=== PATIENT | male | born 1990 | race Hispanic/Latino ===

== ENCOUNTER 2022-10-30 11:32 | Emergency (ER) | payer SELFPAY ==
[2022-10-30 12:22] LABS: #Eosinphils 0.1 thou/uL (0.0-0.7); #Lymphocytes 3.1 thou/uL (1.20-3.40); #Monocytes 0.5 thou/uL (0.11-0.59); #Neutrophils 5.4 thou/uL (1.40-6.50); %Basophils 0.3 % (0.0-1.0); %Eosinophils 1.1 % (0.0-10.0); %Lymphocytes 34.1 % (21.0-51.0); %Monocytes 5.4 % (0.0-10.0); Hemoglobin 15.3 g/dL (14.0-18.0); Mean Corpuscular HGB CONC 34.3 g/dL (32.0-36.0); Mean Corpuscular Hemoglobin 32.6 pg (27.0-31.0); Mean Corpuscular Volume 95.1 fl (78.0-98.0); Mean Platelet Volume 9.6 fL (7.4-10.4); Platelet Count 153 10x3/uL (130-400); RBC Distribution Width 11.4 % (11.5-14.5); Red Blood Cell (RBC) Count 4.69 mill/uL (4.70-6.10); White Blood Cell (WBC) Count 9.1 10x3/uL (4.8-10.8)
[2022-10-30] MEDS ORDERED: FENTANYL 50 MCG/ML 1 ML VIAL ONE (12:34)
[2022-10-30] MEDS ORDERED: Ondansetron PF 4 MG/2 ML Vial ONE (12:34)
[2022-10-30 12:43] LABS: ALT (SGPT) 55 U/L (8-55); AST (SGOT) 43 U/L (5-34); Albumin 4.4 g/dL (3.5-5.0); Alkaline Phosphatase 92 U/L (40-110); Anion Gap 14 mmol/L (10-20); BUN (Urea Nitrogen) 10 mg/dL (8.9-20.6); Bilirubin, Total 1.8 mg/dL (0.2-1.2); Calc. Creatinine Clearance 0 mL/min (70-130); Calcium 8.8 mg/dL (7.8-10.44); Carbon Dioxide 25 mmol/L (22-29); Chloride 104 mmol/L (98-107); Estimated GFR 93; Globulin 2.6 g/dL (2.4-3.5); Glucose 125 mg/dL (70-105); Potassium 3.4 mmol/L (3.5-5.1); Sodium 140 mmol/L (136-145)
[2022-10-30] MEDS ORDERED: Acetaminophen 325 MG TAB PO SCH (14:30)
[2022-10-30] MEDS ORDERED: traMADol HCl 50 MG TAB PO SCH (18:00)
== END 2022-10-30 16:23 | disposition home or self-care (01) ==
LOC: EDSEX 11:32 → ERS 11:32
DX: S22.9XXA Fracture of bony thorax, part unspecified, initial encounter for closed fracture (principal); S02.85XA Fracture of orbit, unspecified, initial encounter for closed fracture; S02.0XXA Fracture of vault of skull, initial encounter for closed fracture; W19.XXXA Unspecified fall, initial encounter
CPT/HCPCS: 36415; 70450; 70486; 71045; 71260; 72125; 74177; 80053; 85025; 94760; 96374; 96375; J2405; J3010

== ENCOUNTER 2024-05-18 15:25 | Observation (INO) | payer SELFPAY ==
[2024-05-18 16:56] LABS: #Basophils 0.04 10x3/uL (0.0-0.2); #Eosinphils Less than 0.03 10x3/uL (0.0-0.7); %Basophils 0.4 % (0.0-1.0); %Eosinophils 0.2 % (0.0-10.0); %Lymphocytes 17.9 % (21.0-51.0); %Monocytes 7.6 % (0.0-10.0); %Neutrophils 73.5 % (42.0-75.0); Hematocrit 43.4 % (42.0-52.0); Hemoglobin 14.8 g/dL (14.0-18.0); Mean Corpuscular HGB CONC 34.1 g/dL (32.0-36.0); Mean Corpuscular Volume 93.7 fL (78.0-98.0); Mean Platelet Volume 11.4 fL (7.4-10.4); Platelet Count 153 10x3/uL (130-400); RBC Distribution Width 12.3 % (11.5-14.5); Red Blood Cell (RBC) Count 4.63 mill/uL (4.70-6.10)
[2024-05-18 17:14] LABS: ALT (SGPT) 65 U/L (8-55); AST (SGOT) 43 U/L (5-34); Albumin 3.9 g/dL (3.5-5.0); Alkaline Phosphatase 93 U/L (40-110); Anion Gap 10 mmol/L (10-20); BUN (Urea Nitrogen) 13 mg/dL (8.9-20.6); Bilirubin, Total 3.6 mg/dL (0.2-1.2); Calc. Creatinine Clearance 0 mL/min (70-130); Calcium 9.4 mg/dL (7.8-10.44); Carbon Dioxide 27 mmol/L (22-29); Chloride 104 mmol/L (98-107); Estimated GFR 105; Globulin 3.3 g/dL (2.4-3.5); Glucose 100 mg/dL (70-105); Lipase 32 U/L (8-78); Potassium 3.8 mmol/L (3.5-5.1); Protein, Total 7.2 g/dL (6.0-8.3); Sodium 137 mmol/L (136-145)
[2024-05-18] MEDS ORDERED: Ondansetron PF 4 MG/2 ML Vial ONE (17:33)
[2024-05-18] MEDS ORDERED: Ketorolac Tromethamine 30 MG (1 mL) VIAL ONE (17:33)
[2024-05-18 18:06] LABS: Bilirubin Negative (Negative); Blood, Urine Negative (Negative); CAUTI Indications for Culture Dysuria,urgency,freq; Clarity Clear (Clear); Glucose, Urine (Dipstick) Normal (Negative); Ketone, Urine Negative (Negative); Leukocyte Negative Leu/uL (Negative); Nitrite Negative (Negative); Protein, Urine (Dipstick) Negative (Neg-Trace); RBC/HPF 0-3 HPF (0-3); Squamous Epithelial 0-3 HPF (0-3); Urobilinogen 3 mg/dL (Less than 2); WBC/HPF 0-3 HPF (0-3)
[2024-05-18] MEDS ORDERED: Piperacillin/Tazobactam 4.5 GM VIAL ONE (18:15)
[2024-05-18] MEDS ORDERED: Sodium Chloride 0.9% 100 ML ONE (18:15)
[2024-05-18] MEDS ORDERED: Morphine 4 MG/ML VIAL ONE (18:15)
[2024-05-18 18:16] LABS: Bacteria/HPF Rare-Few HPF (None Seen); Specific Gravity, Urine Greater than 1.060 (1.002-1.036); Yeast-Budding 1+ HPF (None Seen)
[2024-05-18 18:18] LABS: Urine Culture Reflex No No
[2024-05-18] MEDS ORDERED: Ondansetron PF 4 MG/2 ML Vial IVP PRN (18:45)
[2024-05-18] MEDS ORDERED: Dextrose 5% in Water 1,000 ML IV PRN (18:45)
[2024-05-18] MEDS ORDERED: LevoFLOXacin D5W 500 mg (100 mL) BAG IVPB SCH (18:45)
[2024-05-18] MEDS ORDERED: Glucagon 1 MG/ML KIT IM PRN (18:45)
[2024-05-18] MEDS ORDERED: Acetaminophen 325 MG TAB PO PRN (18:45)
[2024-05-18] MEDS ORDERED: hydrALAZINE 20 MG/ML VIAL SLOW IVP PRN (18:45)
[2024-05-18] MEDS ORDERED: Dextrose 50% Abboject 50 ML SYRINGE SLOW IVP PRN (18:45)
[2024-05-18] MEDS ORDERED: Ipratropium/Albuterol 3 ML NEB NEB PRN (18:45)
[2024-05-18] MEDS: Famotidine 20 MG TAB PO SCH (22:35)
[2024-05-18] MEDS: Ketorolac Tromethamine 30 MG (1 mL) VIAL IVP SCH (23:25)
[2024-05-18] MEDS: HYDROcodone/Acetaminophen 5/325 mg Tablet PO PRN (23:25)
[2024-05-18] MEDS: Lactated Ringer's 1,000 ML IV SCH (23:28)
[2024-05-18] MEDS: Piperacillin/Tazobactam 3.375 GM in Sodium Chloride 0.9% 100 ML IVPB SCH (23:28)
[2024-05-19 01:09] VITALS: BMI 25.4
[2024-05-19 05:18] LABS: Hematocrit 42.4 % (42.0-52.0); Hemoglobin 14.3 g/dL (14.0-18.0); Mean Corpuscular HGB CONC 33.7 g/dL (32.0-36.0); Mean Corpuscular Hemoglobin 32.1 pg (27.0-31.0); Mean Corpuscular Volume 95.3 fL (78.0-98.0); Mean Platelet Volume 11.4 fL (7.4-10.4); Platelet Count 131 10x3/uL (130-400); RBC Distribution Width 12.3 % (11.5-14.5); Red Blood Cell (RBC) Count 4.45 mill/uL (4.70-6.10)
[2024-05-19 05:56] LABS: Anion Gap 16 mmol/L (10-20); BUN (Urea Nitrogen) 15 mg/dL (8.9-20.6); Calc. Creatinine Clearance 88 mL/min (70-130); Calcium 8.5 mg/dL (7.8-10.44); Carbon Dioxide 24 mmol/L (22-29); Chloride 102 mmol/L (98-107); Estimated GFR 77; Glucose 98 mg/dL (70-105); Potassium 3.6 mmol/L (3.5-5.1); Sodium 138 mmol/L (136-145)
[2024-05-19 06:03] LABS: Band 18 % (5-11); Lymphocytes 11 % (21-51); Monocytes 9 % (0-10); Neutrophil 60 % (42-75); Platelet Adequacy Comment Platelets Normal; RBC Morphology Within Normal Limits; Reactive Lymphocytes 2 % (0-10)
[2024-05-19 07:14] LABS: ALT (SGPT) 48 U/L (8-55); AST (SGOT) 31 U/L (5-34); Albumin 3.1 g/dL (3.5-5.0); Alkaline Phosphatase 81 U/L (40-110); Bilirubin, Direct 0.9 mg/dL (0.1-0.3); Bilirubin, Total 5.1 mg/dL (0.2-1.2); Protein, Total 5.8 g/dL (6.0-8.3)
[2024-05-19] MEDS ORDERED: EPINEPHrine 1 MG/ML VIAL ONE (08:19)
[2024-05-19] MEDS ORDERED: Bupivacaine 0.25% HCL 30 ML VIAL ONE (08:19)
[2024-05-19] MEDS ORDERED: Midazolam HCl 2 mg/2 ml Vial ONE (08:56)
[2024-05-19] MEDS ORDERED: PROPOFOL 20 ML ONE (08:56)
[2024-05-19] MEDS ORDERED: fentaNYL PF 100 MCG/2 ML SYRINGE ONE (08:56)
[2024-05-19] MEDS ORDERED: Lidocaine 1% PF 5 ML VIAL ONE (09:12)
[2024-05-19] MEDS ORDERED: Rocuronium Bromide 10 MG/ML (10ML VIAL) ONE (09:12)
[2024-05-19] MEDS ORDERED: PHENYLEPHRINE-NS 100 MCG/ML 10 ML SYRINGE ONE (09:12)
[2024-05-19] MEDS ORDERED: Dexamethasone 20 MG/5 ML VIAL ONE (09:38)
[2024-05-19] MEDS ORDERED: Ondansetron PF 4 MG/2 ML Vial ONE (09:38)
[2024-05-19] MEDS ORDERED: SUGAMMADEX SODIUM 200 MG/2 ML VIAL ONE ×2 (09:55→10:17)
[2024-05-19] MEDS ORDERED: Glucagon 1 MG/ML KIT IM PRN (10:39)
[2024-05-19] MEDS ORDERED: Dextrose 5% in Water 1,000 ML IV PRN (10:39)
[2024-05-19] MEDS ORDERED: Dextrose 50% Abboject 50 ML SYRINGE SLOW IVP PRN (10:39)
[2024-05-19] MEDS ORDERED: Ondansetron PF 4 MG/2 ML Vial IVP PRN (10:39)
[2024-05-19] MEDS ORDERED: Calcium Carbonate 500 MG ChewTAB PO PRN (10:39)
[2024-05-19] MEDS ORDERED: fentaNYL 50 mcg/mL 1 mL Vial ONE (10:49)
[2024-05-19] MEDS: D5 1/2 NS w/20 mEq KCL 1,000 ML IV SCH (14:25)
[2024-05-19] MEDS: Ketorolac Tromethamine 30 MG (1 mL) VIAL IVP SCH (15:38)
[2024-05-19] MEDS: traMADol HCl 50 MG TAB PO PRN (18:11)
[2024-05-19] MEDS: Enoxaparin 30 MG (0.3 mL) SYRINGE SC SCH (21:54)
[2024-05-19] MEDS: Famotidine 20 MG TAB PO SCH (21:55)
[2024-05-19] MEDS: HYDROcodone/Acetaminophen 10/325 mg Tablet PO PRN (21:55)
[2024-05-20 08:02] VITALS: BP 106/69; TEMP 97.9
[2024-05-20] MEDS ORDERED: Enoxaparin 40 MG (0.4 mL) SYRINGE SC SCH (21:00)
== END 2024-05-20 11:32 | disposition home or self-care (01) ==
LOC: ERS 15:25 → SURG B 18:45
PROVIDERS: ADMIT Surgery; ATTEND Surgery
PROC: 0DTJ4ZZ Resection of Appendix, Percutaneous Endoscopic Approach (ICD-10-PCS; principal; 2024-05-20)
DX: K35.30 Acute appendicitis with localized peritonitis, without perforation or gangrene (principal)
CPT/HCPCS: 36415; 74177; 80048; 80053; 80076; 81001; 83605; 83690; 85025; 88304; 96361; 96374; 96375; 96376; G0378; J0171; J0665; J1100; J1650; J1885; J2250; J2272; J2405; J2543; J2704; J3010; J3480; J7120